=== PATIENT | female | born 1995 | race Caucasian/White ===

== ENCOUNTER 2019-12-01 16:10 | Emergency (ER) | payer SELFPAY ==
[~2019-12-01] VITALS: Ht 170.2 cm; Wt 80.0 kg
[~2019-12-01 16:10] MED LIST: ACET10SO PO
[2019-12-01 16:23] VITALS: BP 107/69
[2019-12-01] MEDS ORDERED: METH-360 PO (17:44)
[2019-12-01] MEDS ORDERED: IBUP-1985 PO (17:44)
[2019-12-01] MEDS ORDERED: ketorolac tromethamine 15mg/ml inj. IM ONE (17:45)
== END 2019-12-01 18:15 | disposition home or self-care (01) ==
LOC: ER 16:10
DX: S29.012A Strain of muscle and tendon of back wall of thorax, initial encounter (principal); S40.012A Contusion of left shoulder, initial encounter; M54.2 Cervicalgia; F12.90 Cannabis use, unspecified, uncomplicated; Z79.899 Other long term (current) drug therapy; V49.49XA Driver injured in collision with other motor vehicles in traffic accident, initial encounter; Y93.89 Activity, other specified; Y92.488 Other paved roadways as the place of occurrence of the external cause; Y99.8 Other external cause status
CPT/HCPCS: 72070; 73030; 96372; 99284; J1885

== ENCOUNTER 2020-01-18 19:51 | Emergency (ER) | payer OTHER ==
[~2020-01-18] VITALS: Ht 167.6 cm; Wt 64.1 kg
[~2020-01-18 19:51] MED LIST changes: +IBUP-1985 PO; +METH-360 PO
[2020-01-18 19:53] VITALS: BP_DIAS 74
[2020-01-18 22:15] LABS: URINE HCG NEGATIVE (NEG)
[2020-01-18 22:19] LABS: CLARITY,URINE SLIGHTLY CLOUDY (Clear); COLOR,URINE AMBER (Yellow); GLUCOSE, URINE NEGATIVE (Neg); KETONES,URINE >=80 mg/dl (Neg); LEUKOCYTE ESTERASE ,URINE TRACE (Neg); NITRITES, URINE NEGATIVE (Neg); OCCULT BLOOD,URINE TRACE-LYSED (Neg); PH,URINE 5.5 (4.8-8.0); PROTEIN,URINE NEGATIVE (Neg); UA COLLECTION TYPE CLN CATCH MIDSTREAM; UROBILINOGEN,URINE 0.2 E.U/dL (0.2-1.0)
[2020-01-18] MEDS ORDERED: LIDOcaine Viscous 15ml cup MM STA (22:26)
[2020-01-18 22:28] LABS: SQUAMOUS EPITHELIAL CELL,UR MODERATE /LPF (FEW)
[2020-01-18 22:29] LABS: MUCUS STRANDS MANY /LPF (Neg)
[2020-01-18] MEDS ORDERED: acetaminophen 325mg tablet PO ONE (22:30)
[2020-01-18 22:34] LABS: BACTERIA,URINE 2+ /HPF (Neg); RBC,URINE 0-2 /HPF (0-2); WBC,URINE 30-50 /HPF (0-4)
[2020-01-18 22:38] LABS: MONOTEST NEGATIVE (Neg)
[2020-01-18] MEDS ORDERED: CefTRIAXone 1000mg IM Kit (w/lidocaine diluent) IM ONE (22:55)
[2020-01-18 23:09] LABS: BASOPHILS % (AUTO) 0.2 % (0-1); EOSINOPHILS % (AUTO) 0 % (0-6); HEMOGLOBIN 13.3 g/dl (12.0-16.0); LYMPHOCYTES # (AUTO) 0.6 X10'3 (1.1-4.8); LYMPHOCYTES % (AUTO) 5.4 % (21-51); MEAN CORPUSCULAR HEMOGLOBIN 34.1 PG (27.0-31.0); MEAN CORPUSCULAR VOLUME 100.2 FL (78-98); MEAN PLATELET VOLUME 8.5 FL (7.4-10.4); MONOCYTES # (AUTO) 0.6 X10'3 (0-0.9); MONOCYTES % (AUTO) 5.5 % (2-12); NEUTROPHILS # (AUTO) 10.5 X10'3 (1.8-7.7); NEUTROPHILS % (AUTO) 88.9 % (42-75); PLATELET COUNT 235 X10'3 (140-440); RED CELL DISTRIBUTION WIDTH 14.2 % (11.5-14.5); WHITE BLOOD COUNT 11.8 X10'3 (4.5-11.0)
[2020-01-18 23:15] LABS: ALANINE AMINOTRANSFERASE 17 U/L (12-78); ALBUMIN 4.4 G/DL (3.4-5.0); ALBUMIN/GLOBULIN RATIO 1.1 (1.1-1.5); ALKALINE PHOSPHATASE 60 IU/L (46-116); ANION GAP 13 (8-16); ASPARTATE AMINO TRANSFERASE 16 U/L (10-37); BILIRUBIN,TOTAL 0.4 MG/DL (0.1-1.0); BLOOD UREA NITROGEN 9 MG/DL (7-18); BUN/CREATININE RATIO 10.6 (6.6-38.0); CALCIUM 9.3 MG/DL (8.5-10.1); CHLORIDE 101 MMOL/L (99-107); CREATININE 0.85 MG/DL (0.40-0.90); GLUCOSE 82 MG/DL (70-104); POTASSIUM 4.2 MMOL/L (3.5-5.1); SODIUM 139 MMOL/L (135-145); TOTAL PROTEIN 8.3 G/DL (6.4-8.2); eGFR 84 ML/MIN
[2020-01-19] MEDS ORDERED: SULF1TAB49 PO (00:14)
[2020-01-19] MEDS ORDERED: LIDO20SO16 PO (00:14)
[2020-01-19 01:01] VITALS: BP_SYST 134
== END 2020-01-19 00:40 | disposition home or self-care (01) ==
LOC: ER 19:52
DX: J02.8 Acute pharyngitis due to other specified organisms (principal); N39.0 Urinary tract infection, site not specified; Z79.899 Other long term (current) drug therapy; F12.10 Cannabis abuse, uncomplicated
CPT/HCPCS: 36415; 80053; 81001; 81025; 85025; 86308; 87077; 87081; 87088; 87186; 87880; 96372; 99283; J0696

== ENCOUNTER 2020-09-05 22:02 | Emergency (ER) | payer OTHER ==
[~2020-09-05] VITALS: Ht 170.2 cm; Wt 54.0 kg
[~2020-09-05 22:02] MED LIST changes: +LIDO20SO16 PO
[2020-09-06] MEDS ORDERED: diazepam 5mg tablet PO ONE (00:40)
[2020-09-06 01:07] LABS: BASOPHILS % (AUTO) 0.3 % (0-1); EOSINOPHILS % (AUTO) 0.4 % (0-6); HEMATOCRIT 40.7 % (35.0-45.0); HEMOGLOBIN 13.9 g/dl (12.0-16.0); LYMPHOCYTES # (AUTO) 2.1 X10'3 (1.1-4.8); MEAN CORPUSCULAR HEMOGLOBIN 33.7 PG (27.0-31.0); MEAN CORPUSCULAR HGB CONC 34.2 g/dL (33.0-36.5); MEAN CORPUSCULAR VOLUME 98.6 FL (78-98); MEAN PLATELET VOLUME 8.1 FL (7.4-10.4); MONOCYTES # (AUTO) 0.4 X10'3 (0-0.9); NEUTROPHILS # (AUTO) 4.8 X10'3 (1.8-7.7); NEUTROPHILS % (AUTO) 65.3 % (42-75); PLATELET COUNT 255 X10'3 (140-440); RED BLOOD COUNT 4.13 X10'6 (4.20-5.60); RED CELL DISTRIBUTION WIDTH 13.3 % (11.5-14.5); WHITE BLOOD COUNT 7.4 X10'3 (4.5-11.0)
[2020-09-06 01:20] LABS: ALANINE AMINOTRANSFERASE 34 U/L (12-78); ALBUMIN 4.2 G/DL (3.4-5.0); ALBUMIN/GLOBULIN RATIO 1.2 (1.1-1.5); ALKALINE PHOSPHATASE 33 IU/L (46-116); ANION GAP 10 (8-16); ASPARTATE AMINO TRANSFERASE 24 U/L (10-37); BILIRUBIN,TOTAL 0.3 MG/DL (0.1-1.0); BLOOD UREA NITROGEN 14 MG/DL (7-18); BUN/CREATININE RATIO 17.5 (6.6-38.0); CHLORIDE 103 MMOL/L (99-107); CREATINE KINASE 200 U/L (26-192); GLUCOSE 73 MG/DL (70-104); POTASSIUM 3.5 MMOL/L (3.5-5.1); SODIUM 138 MMOL/L (135-145); TOTAL CARBON DIOXIDE 25.2 MMOL/L (24-32); TOTAL PROTEIN 7.6 G/DL (6.4-8.2); eGFR 90 ML/MIN
[2020-09-06 02:42] VITALS: BP 94/60
== END 2020-09-06 02:49 | disposition home or self-care (01) ==
LOC: ER 22:03
DX: T75.4XXA Electrocution, initial encounter (principal)
CPT/HCPCS: 36415; 80053; 82550; 85025; 93005; 99284

== ENCOUNTER 2023-09-13 20:42 | Emergency (ER) | payer MEDICAID, OTHER ==
[~2023-09-13] VITALS: Ht 170.2 cm; Wt 150.0 kg
[2023-09-13 20:44] VITALS: TEMP 98
[2023-09-13] MEDS: famotidine 20mg tablet PO ONE (22:07)
[2023-09-13] MEDS: diphenhydrAMINE 50 mg/ml inj IV ONE (22:07)
[2023-09-13] MEDS: dexamethasone sod phosphate 10mg/ml inj IV STA (22:08)
[2023-09-13] MEDS: normal saline 1000ml 1,000 ML IV ONE (22:10)
[2023-09-13] MEDS: ipratropium/albuterol 3ml nebule NEB STA (22:26)
[2023-09-13 22:29] VITALS: PULSE 79; RESP 16; O2SAT 98
[2023-09-13 22:37] VITALS: PULSE 81; RESP 16; O2SAT 100
[2023-09-13] MEDS ORDERED: DIPH25TA62 PO (23:18)
[2023-09-13] MEDS ORDERED: FAMO-129 PO (23:18)
[2023-09-13] MEDS ORDERED: PRED20TA PO (23:18)
[2023-09-13] MEDS ORDERED: ALBU8HFA INH (23:18)
[2023-09-13 23:29] VITALS: BP 99/68; PULSE 76; RESP 16; O2SAT 99
== END 2023-09-13 23:29 | disposition home or self-care (01) ==
LOC: ER 20:43
DX: T78.40XA Allergy, unspecified, initial encounter (principal); R06.02 Shortness of breath; F12.90 Cannabis use, unspecified, uncomplicated; Z79.1 Long term (current) use of non-steroidal anti-inflammatories (NSAID); Z79.899 Other long term (current) drug therapy; X58.XXXA Exposure to other specified factors, initial encounter
CPT/HCPCS: 71045; 94640; 96374; 96375; 99284; J1100; J1200; J7030; 94760; 96361

== ENCOUNTER 2023-12-01 22:31 | Emergency (ER) | payer MEDICAID, OTHER ==
[~2023-12-01] VITALS: Ht 170.2 cm; Wt 65.9 kg
[~2023-12-01 22:31] MED LIST changes: +DIPH25TA62 PO; +FAMO-129 PO
[2023-12-01] MEDS ORDERED: iohexol 300mg/ml 100ml inj. ONE (22:46)
[2023-12-01 22:59] LABS: BASOPHILS % (AUTO) 0.4 % (0-1); EOSINOPHILS # (AUTO) 0.1 X10'3 (0-0.9); EOSINOPHILS % (AUTO) 2.2 % (0-6); HEMATOCRIT 39.4 % (35.0-45.0); HEMOGLOBIN 13.2 g/dl (12.0-16.0); LYMPHOCYTES % (AUTO) 20.4 % (21-51); MEAN CORPUSCULAR HEMOGLOBIN 35.4 PG (27.0-31.0); MEAN CORPUSCULAR HGB CONC 33.5 g/dL (33.0-36.5); MEAN CORPUSCULAR VOLUME 105.4 FL (78-98); MEAN PLATELET VOLUME 7.2 FL (7.4-10.4); MONOCYTES # (AUTO) 0.4 X10'3 (0-0.9); MONOCYTES % (AUTO) 8.7 % (2-12); NEUTROPHILS # (AUTO) 3.4 X10'3 (1.8-7.7); NEUTROPHILS % (AUTO) 68.3 % (42-75); PLATELET COUNT 258 X10'3 (140-440); RED BLOOD COUNT 3.73 X10'6 (4.20-5.60); RED CELL DISTRIBUTION WIDTH 16.6 % (11.5-14.5); WHITE BLOOD COUNT 4.9 X10'3 (4.5-11.0)
[2023-12-01] MEDS: HYDROmorphone 1 mg/ml syringe IV ONE (23:03)
[2023-12-01] MEDS: normal saline 1000ml 1,000 ML IV ONE (23:03)
[2023-12-01] MEDS: LIDOcaine 5% patch TP STA (23:11)
[2023-12-01 23:14] LABS: APTT 23 SECONDS (22-32); PROTHROMBIN TIME 10.4 SECONDS (9.0-12.0)
[2023-12-01 23:16] LABS: ALANINE AMINOTRANSFERASE 32 U/L (12-78); ALBUMIN 3.9 G/DL (3.4-5.0); ALBUMIN/GLOBULIN RATIO 1.1 (1.1-1.5); ALKALINE PHOSPHATASE 44 IU/L (46-116); ANION GAP 11 (8-16); ASPARTATE AMINO TRANSFERASE 44 U/L (10-37); BILIRUBIN,TOTAL 0.3 MG/DL (0.1-1.0); BLOOD UREA NITROGEN 5 MG/DL (7-18); BUN/CREATININE RATIO 6.9 (10.0-20.0); CALCIUM 8.7 MG/DL (8.5-10.1); CHLORIDE 102 MMOL/L (99-107); CREATININE 0.72 MG/DL (0.40-0.90); GLUCOSE 95 MG/DL (70-104); POTASSIUM 3.9 MMOL/L (3.5-5.1); SODIUM 137 MMOL/L (135-145); TOTAL PROTEIN 7.6 G/DL (6.4-8.2); eCRCL 115 ML/MIN; eGFR > 90 ML/MIN
[2023-12-01 23:19] LABS: HCG SERUM QL NEGATIVE
[2023-12-02] MEDS ORDERED: HYDR-3965 PO (01:06)
[2023-12-02 01:33] VITALS: BP 119/75; PULSE 88; RESP 16; TEMP 98.8; O2SAT 98
== END 2023-12-02 01:36 | disposition home or self-care (01) ==
LOC: ER 22:31
DX: S20.219A Contusion of unspecified front wall of thorax, initial encounter (principal); F12.90 Cannabis use, unspecified, uncomplicated; W18.39XA Other fall on same level, initial encounter; Y93.72 Activity, wrestling; Y92.89 Other specified places as the place of occurrence of the external cause; Y99.8 Other external cause status
CPT/HCPCS: 71260; 80053; 84703; 85025; 85610; 85730; 96361; 96374; 99285; J1171; J7030; Q9967

== ENCOUNTER 2024-08-26 14:18 | Emergency (ER) | payer MEDICAID ==
[~2024-08-26] VITALS: Ht 170.2 cm; Wt 75.1 kg
--- NOTE | 2024-08-26 14:40 | Physician Documentation ---
History of Present Illness Chief Complaint: Complications Stated Complaint: PREG COMPLICATIONS Time Seen by MD: 14:31 Primary Medical Doctor: NONE HPI This is a pleasant 28-year-old female who presents for evaluation of right upper quadrant abdominal pain that woke her from sleep at 5:00 a.m.. No obvious trigger provocation. The pain is progressively getting worse can point that he is in her severe. Comes in waves. The particular palliating factors. Did not attempt to treat it. Never experienced this in the past. She is 18 weeks and followed by [facility], Dr. Quezada Denies any vaginal bleeding or vaginal discharge Medication Reconciliation Allergies: Coded Allergies: [place] And Derivatives (Unverified Allergy, Unknown, 08/26/24) Scheduled Diphenhydramine HCl (Benadryl Allergy), 2 TAB PO HS Famotidine (Pepcid), 1 TAB PO Q12H Ibuprofen (Ibuprofen), 1 TAB PO Q8H Lidocaine Hcl (Xylocaine Viscous), 5 ML PO q4h prn Methocarbamol (Robaxin-750), 1 TAB PO Q12H Scheduled PRN Acetaminophen With Codeine (Acetaminophn-Cod 240-24 Mg Nona), 7.5 ML PO TID PRN for pain Past Medical History Past Medical History: No Pertinent History Past Surgical History: no surgical history Alcohol Use: None Drug Use: marijuana Lives with: Mother Lives In: Home Occupation: employed, student Review of Systems ROS 10 point review of systems was performed and unless noted above in HPI is negative for acute process/complaint. Physical Exam Vital Signs: Temperature: 98.9, Source: Temporal, Heart Rate: 114, Respiratory Rate: 22, BP: 115/82, Pulse Oximetry: 100, Weight: 75.100 Oxygen Flow Rate: 0 Physical Exam GENERAL: Awake, alert, oriented, GCS 15, no apparent distress, non-toxic appearing, answers questions, follows commands appropriately. Examined in room 7., accompanied by HEENT: Atraumatic, normocephalic, pupils equal, extraocular muscles intact, sclerae anicteric, mucus membranes moist, oropharynx is clear, no stridor. NECK: supple, full active range of motion, trachea midline, no thyromegaly, no lymphadenopathy, no JVD. CARDIOVASCULAR: Tachycardic and regular rate/rhythm, no murmurs/gallops/rubs, Pulses are 2+ in all extremities and symmetric. Capillary refill less than 2 seconds. PULMONARY: Nonlabored, good air movement ,no respiratory distress, speaking in full sentences, clear to auscultation bilaterally, no wheezing, no ronchi, no rales, no accessory muscle use. GASTROINTESTINAL: Soft, right-sided abdominal tenderness to palpation reproducing chief complaint, no guarding or rebound, non-distended, normal active bowel sounds, no organomegaly, no pulsatile masses, no CVA tenderness. NEUROLOGIC: Lucid with normal mental status. Normal facial symmetry. Moves all extremities symmetrically and with purpose. No truncal ataxia. Speech is fluid without evidence of dysarthria or aphasia, no focal deficits appreciated. MUSCULOSKELETAL: There is full range of motion of all extremities. There is no joint pain or joint swelling or joint erythema. There is no muscle pain or tenderness or swelling. EXTREMITIES: warm, well-perfused, no cyanosis, no clubbing, no edema, no acute deformities. Skin: warm, dry, no rashes or lesions, no jaundice, no petechiae orpurpura. No ecchymosis. PSYCHIATRIC: Understandably anxious affect, normal insight, normal concentration. Focused exam: [] Progress Results/Orders Results/Orders Orders - RADHA SINGH DO Ultrasound Of Abdomen (08/26/24 ) Ondansetron Inj. (Zofran 4mg/2ml Vial) (08/26/24 14:35) Morphine 4mg/Ml Inj. (Morphine Inj.) (08/26/24 14:35) Vital Signs 08/26/24 14:21 Temp 98.9 Pulse 114 Resp 22 B/P (MAP) 115/82 Pulse Ox 100 O2 Flow Rate 0 Medical Decision Making Findings Facility Status: ED Holds, RME process The plan was discussed with the patient, who demonstrates clear understanding of the plan and is in agreement with the plan unless otherwise noted in the chart. All questions have been answered, all concerns were addressed unless otherwise documented. I was available throughout their ED stay for frequent reassessment and questions. Differential Diagnoses (considered and possible or likely): [Differential diagnosis considered includes acute appendicitis, acute cholecystitis, pancreatitis, gastritis, PUD, diverticulitis, mesenteric ischemia, abdominal aortic aneurysm, bowel obstruction, enteritis, colitis, fecal impaction, volvulus, IBS, inflammatory bowel disease, specific food intolerance, peritonitis, perforated viscous, malignancy, UTI, abscess, and abdominal pain NOS. Pelvic source of pain was also considered including complications including threatened miscarriage, ovarian cyst, ovarian torsion, PID, TOA, cervicitis, vaginitis, or uterine fibroid. History, physical exam, and workup exclude many of the more serious causes listed above. ] ??Differential Diagnoses (considered and unlikely, not requiring evaluation currently): [No evidence of trauma] MDM Data Please see HPI for the following: Independent Historians and external Records Review. Historian: [Patient] Independent Historians: ?[, record review] Medication Management: [Reviewed medication list] Social History and determinants: [Reviewed] Please see the body of the note for the following: Any independent interpretations of ECG, imaging studies. All vitals signs/haemodynamics, ordered tests were independently reviewed and interpreted by myself. Nursing triage complaint and vitals reviewed, additional nursing notes were reviewed as available and I agree unless otherwise noted or documented in contradiction in the chart Vital Signs: Independently reviewed Labs: Independently interpreted Imaging: Independently interpreted Old Medical Records: Independently reviewed, see HPI for relevant summary and information Pulse Oximetry: [99%] interpreted as [normal on room air] by me [Spotter Driver: Tachycardic Rate, Regular rhythm, no ectopy, sinus tachycardia. reviewed and interpreted by me] Additionally notably showing: [] Tests considered but not ordered include: [] Social Determinants of Health Impact: Patient was evaluated in [facility] [place] to [facility] due to below par ratio of patient to medical providers. [] Comorbid Conditions Impacting Present Evaluation and Care/Treatment: [] Management Discussions with other Healthcare Providers: [] Treatment and Disposition Medication Management (Given or considered): []. See EMR for details Consideration for Hospitalization/Escalation/Deescalation of Care: Admission for observation has been considered, [however the patient is able to tolerate p.o., their symptoms are controlled, they are able to rely on oral medications, and their chief complaint/diagnosis can be managed on outpatient basis.] ?ED Course:?[] ?Shared decision making:?[] Code status:?FULL Please see the full Electronic Medical Record for full details of nursing documentation, medications list, other records of complete past medical history and conditions, vital signs, laboratory studies, and any radiologic study interpretations by radiologists. Portions of this note were completed using TPACK dictation software and as a result there may exist minor errors in spelling. I have reviewed elements of past family and social history and agree as included in note. Departure Disposition: 01 HOME / SELF CARE / HOMELESS Impression: Primary Impression: Abdominal pain during Condition: Stable Discharge Instructions: Abdominal Pain During Referrals: NO PRIMARY CARE PROVIDER (PCP) Signature Scribe Signature: No scribe Attestation: The note accurately reflects work and decisions made by me.Miguel Mallory MD 08/26/24 20:34 This note accurately reflects clinical decisions, work performed by myself, DO SAMANTHA Aquino NICHOLAS M DO Aug 26, 2024 14:39 MIGUEL MALLORY MD Aug 26, 2024 20:35
[2024-08-26] MEDS: ondansetron/PF 4mg/2ml inj IV ONE (14:48)
[2024-08-26] MEDS: morphine 4 MG/ML inj SYRINge IV ONE (14:48)
[2024-08-26 15:09] LABS: MEAN PLATELET VOLUME 7.7 FL (7.4-10.4); RED CELL DISTRIBUTION WIDTH 15.4 % (11.5-14.5)
[2024-08-26 15:28] LABS: CREATININE 0.70 MG/DL (0.40-0.90); TOTAL CARBON DIOXIDE 20.5 MMOL/L (24-32); eCRCL 118 ML/MIN; eGFR > 90 ML/MIN
[2024-08-26] MEDS: fentaNYL/PF 50MCG/1 ML 2ML syringe IV ONE (15:35)
--- NOTE | 2024-08-26 15:45 | RADIOLOGY REPORT ---
LIMITED OB ULTRASOUND > 14 WKS: HISTORY: pain, 18 weeks TECHNIQUE: Multiple real-time grayscale images of the gravid uterus with duplex Doppler color flow an d M-mode spectral analysis. TRANSDUCER: Transabdominal FINDINGS: IUP single live fetus at 18 weeks 2 days based on composite averages of the BPD, head circumference, abdominal circumference and femur length Estimated weight 226 grams heart rate 158 beats per minute JUDY 14.5 cm Cervix measures 4.1 cm. Variable Presentation Anterior Placenta without previa or abruption. IMPRESSION: IUP single live fetus at 18 weeks 2 days AUA corresponding to an KATIE of 01/25/2025.
--- NOTE | 2024-08-26 15:45 | RADIOLOGY REPORT ---
INDICATION: RUQ pain, deysi vs kidney TECHNIQUE: Multiple real-time sonographic images were obtained of the right upper quadrant. COMPARISON: None FINDINGS: The liver demonstrates homogenous echotexture without focal mass lesions. The liver measure s 14 cm. There is no intrahepatic or extrahepatic ductal dilatation. The common duct measures 2 mm. The gallbladder is without evidence of stone or sludge. The gallbladder wall measures 3 mm and is wi thin normal limits. The right kidney measures 10.3 cm. The right kidney is normal in contour, size, and shape. The echog enicity is normal. There is no hydronephrosis. The pancreas is not well visualized due to overlying bowel gas. IMPRESSION: No sonographic evidence of gallstones or acute cholecystitis.
[2024-08-26 19:50] LABS: LEUKOCYTE ESTERASE ,URINE NEGATIVE (Neg); NITRITES, URINE NEGATIVE (Neg); OCCULT BLOOD,URINE NEGATIVE (Neg)
[2024-08-26 19:54] LABS: UA COLLECTION TYPE CLN CATCH MIDSTREAM
[2024-08-26 20:41] VITALS: BP 88/51; PULSE 112; RESP 18; TEMP 98.9; O2SAT 100
--- NOTE | 2024-08-26 20:48 | RADIOLOGY REPORT ---
Procedure: US US OB 08/26/2024 07:32 PM Indication: pelvic pain Comparison: US US OB on DOS: 08/26/24 TECHNIQUE: Sonographic evaluation of the gravid uterus utilizing a transabdominal probe. FINDINGS: Single living intrauterine gestation. Presentation: breech Placenta: Anterior heart rate: 131 bpm Cervical length of 3.6cm. Maternal cervix: closed Right ovary measures 2.5 x 2.5 x 2.9 cm. follicles noted within the right ovary. normal vasculature. IMPRESSION: 1. Single living intrauterine gestation as above. no acute process identified.
== END 2024-08-26 20:54 | disposition home or self-care (01) ==
LOC: ER 14:18
DX: O26.892 Other specified pregnancy related conditions, second trimester (principal); R10.11 Right upper quadrant pain; Z3A.18 18 weeks gestation of pregnancy; Z88.8 Allergy status to other drugs, medicaments and biological substances
CPT/HCPCS: 36415; 76700; 76805; 76815; 80053; 81003; 83690; 85025; 86885; 86900; 86901; 96374; 96375; 99285; J1171; J2270; J2405; J3010